=== PATIENT | female | born 1990 | race Caucasian/White ===

== ENCOUNTER 2023-03-14 23:41 | Emergency (ER) | payer MEDICAID, SELFPAY ==
[2023-03-14 23:44] VITALS: BP 142/95; PULSE 91; RESP 14; TEMP 37.1; O2SAT 98; BMI 36.5
== END 2023-03-15 06:09 | disposition left against medical advice (07) ==
PROVIDERS: Emergency Provider Emergency Medicine
DX: R06.02 Shortness of breath (principal); R04.0 Epistaxis
CPT/HCPCS: 99281

== ENCOUNTER 2023-11-08 21:47 | Emergency (ER) | payer MEDICAID, SELFPAY ==
[2023-11-08 21:56] VITALS: BP 141/63; PULSE 106; RESP 18; TEMP 37.2; O2SAT 97; BMI 38.7
--- NOTE | 2023-11-08 22:55 | MHC.EDTECH ---
Patient rsv/covid swab collected and sent to lab .
[2023-11-08 23:43] LABS: Influenza A PCR NEGATIVE (Negative); Influenza B PCR NEGATIVE (Negative); Resp Syncy Virus RNA Qual PCR NEGATIVE (Negative); SARS COV2 PCR INHOUSE NEGATIVE (Negative)
--- NOTE | 2023-11-09 01:01 | ED.GENADULT ---
HPI - General Adult General Chief complaint: General Medical Stated complaint: Flu like syptoms Time Seen by Provider: 11/09/23 01:02 Source: patient and hearing screener Mode of arrival: ambulatory Limitations: language barrier History of Present Illness HPI narrative: Patient is a 33 year old assigned female at with no reported medical history presenting to the emergency department today with a rash and feeling generally unwell. Patient states that 2 days ago she touched the powder that goes on top of donuts that possibly contained tree nuts, which she is allergic to. Patient today she has begun to feel unwell with a fever and body aches. Patient denies any dizziness, lightheadedness, abdominal pain, nausea, vomiting, chills, blurry vision, double vision, loss of vision, chest pain, difficulty breathing, shortness of breath, back pain, night sweats, pain with urination, increased urinary frequency, increased urinary urgency, blood in her urine or stool, syncope or a near syncopal episode, recent trauma or falls, bowel incontinence, bladder incontinence, bowel retention, bladder retention, or any other complaints at this time. Onset (ago): day(s) Severity: mild Relieving factors: none Exacerbating factors: none Associated symptoms: fever/chills Treatments prior to arrival: none Related Data Previous Rx's Medication Instructions Recorded prednisone 20 mg tablet 20 mg PO DAILY 7 days #7 tabs 11/09/23 Allergies Allergy/AdvReac Type Severity Reaction Status Date / Time Penicillins [PENICILLINS] Allergy Intermediate UNKNOWN Unverified 07/25/20 18:38 tree nut Allergy Rash Verified 11/08/23 22:04 PCN Allergy Unknown hives Uncoded 04/12/14 00:00 Review of Systems Constitutional: Constitutional: Reports no additional constitutional complaints, Denies chills, Reports fever(s) and Denies night sweats Eyes: Eyes: Reports no additional eye complaints, Denies blurry vision, Denies change in vision, Denies diplopia, Denies eye discharge, Denies loss of vision and Denies eye pain ENT: Denies dizziness Cardiovascular: Cardiovascular: Reports no additional cardiovascular complaints, Denies chest pain, Denies lightheadedness, Denies Loss of Consciousness and Denies dyspnea Respiratory: Respiratory: Reports no additional respiratory complaints and Denies dyspnea Gastrointestinal: Gastrointestinal: Reports no additional gastrointestinal complaints, Denies abdominal pain, Denies melena, Denies hematochezia, Denies change in bowel habits and Denies change in stool character Genitourinary: Genitourinary: Denies hematuria, Denies urinary frequency, Denies dysuria, Denies urinary incontinence, Denies urinary hesitancy and Denies urinary urgency Musculoskeletal: Musculoskeletal: Reports no additional musculoskeletal complaints, Denies numbness and Denies tingling Integumentary/Breasts: Comments: rash to bilateral hands Neurologic: Denies dizziness, Denies loss of vision, Denies numbness and Denies tingling Psychiatric: Psychiatric: Reports no additional psychiatric complaints Endocrine: Endocrine: Reports no additional endocrine complaints Hematologic/Lymphatic: Hematologic/Lymphatic: Reports no additional hematologic/lymphatic complaints Allergic/Immunologic: Allergic/Immunologic: Reports no additional allergic/immunologic complaints PMFSH Past Medical History Attestation statement: The following information was validated with the patient. Source: old records reviewed and nursing notes reviewed Onset Date is defined in the Problem List Problems that require an onset date and time if occurred within 24 hrs of arrival to the ED Aortic Dissection and Rupture; Neurologic impairment; Cardiopulmonary Arrest; Endotracheal Intubation; Insertion or Replacement of Mechanical Circulatory Assist Device Social History Social History Advance Directives: No Advance Directives Information Provided: No Physical Exam ED Vital Signs: Vital Signs - 24 hr 11/08/23 21:56 Temperature 99 F Pulse Rate 106 H Respiratory Rate 18 Blood Pressure 141/63 H Pulse Oximetry 97 Oxygen Delivery Method Room Air BMI result Body Mass Index 38.7 Const General: cooperative, no acute distress, alert and awake Nutritional Appearance: well nourished Orientation/consciousness: patient oriented x3 Limitations: no limitations HENMT Head: Yes normal to inspection and Yes atraumatic Ears: hearing grossly normal bilaterally and external ears normal General nose exam: Normal external nose present, no nasal discharge noted and no epistaxis Face and sinus: Yes normal facial exam, No abrasion and No laceration Mouth: Normal oral and palatal mucosa present, no drooling and no muffled voice Eyes General: appearance normal, both eyes and all related structures Periorbital: periorbital findings normal Eyelids: Yes eyelids normal Conjunctivae: conjunctivae normal Pupils: Equal, round and reactive pupils present EOM: EOMs intact bilaterally Neck Neck: Yes normal visual inspection, Yes full ROM and Yes no lymphadenopathy Chest Chest palpation & inspection: normal inspection of the chest Resp Effort & Inspection: normal respiratory effort and able to speak in complete sentences GI Inspection: Yes normal to inspection Neuro General: patient oriented x3 and moves all extremities Cranial nerves: Yes Equal, round and reactive pupils present Cognition (Neuro): normal cognition Motor exam (neuro): 5/5 motor strength present throughout Sensory Exam: Normal double simultaneous stimulation for sensation Coordination: [id number] test normal Extrem Other: dermatitis type rash to the bilateral dorsal hands General: Yes full ROM and Yes capillary refill normal Psych Appearance: grossly normal Mental Status: mental status grossly normal Affect: normal affect Attitude: cooperative Thought process: Normal thought process present Thought content: Normal thought content present Insight: Good insight present (Psych) Medications Administered Discontinued Medications Generic Name Dose Route Start Last Admin Trade Name Freq PRN Reason Stop Dose Admin Dexamethasone Sodium Phosphate 10 mg 11/09/23 01:18 11/09/23 01:32 Dexamethasone Sod Phosphate 10 Mg/Ml Vial PO 11/09/23 01:19 10 mg ONCE ONE Administration Medical Decision Making Medical Decision Making MDM Narrative: Patient is a 33 year old assigned female at with no reported medical history presenting to the emergency department today with a rash and feeling generally unwell. Patient's physical exam was as noted in the physical exam portion of this note. Patient's COVID-19, influenza, and RSV tests were negative. Patient's rash is most consistent with dermatitis. I believe the patient has a dermatitis type rash as well as a viral illness. I explained my physical exam findings as well as all test results to the patient. I answered all questions asked by the patient. I stressed the importance of the patient taking her medication as prescribed. I stressed the importance of the patient following up with her primary care provider and a strapper operator. I stressed the importance of the patient returning to the emergency department immediately if her symptoms were to worsen or if she were to develop any dizziness, shortness of breath, difficulty breathing, chest pain, blurry vision, loss of vision, nausea, vomiting, abdominal pain, fever, chills, back pain, or any other complaints. Patient verbalized agreement and understanding with this treatment plan and discharge. Differential Diagnosis Differential Diagnoses: The differential diagnosis associated with the presentation includes Dermatitis Allergic reaction Viral illness Influenza COVID-19 RSV Admission/Observation Consideration of admission/observation: Escalation of care including admission/observation considered Patient would have been admitted to the hospital had her work up had any findings where hospital admission was appropriate and her clinical presentation warranted hospital admission. Lab Data MDM Lab Attestation statement: I reviewed the patient's lab results. My interpretation of these studies and their corresponding values is that they are grossly normal. Labs: Lab Results 11/08/23 Range/Units 22:55 Influenza Type A (PCR) NEGATIVE (Negative) Influenza Type B (PCR) NEGATIVE (Negative) RSV RNA Qual (PCR) NEGATIVE (Negative) SARS-CoV-2 RNA (RT-PCR) NEGATIVE (Negative) Prescription Management I considered prescription management with: Other (patient prescribed prednisone.) Discharge Plan Discharge Clinical Impression: Rash Patient Disposition: Home, Self-Care Instructions: Acute Rash (ED) Additional Instructions: Follow up with your primary care provider and a strapper operator. Return to the emergency department immediately if your symptoms worsen or if you develop any dizziness, shortness of breath, difficulty breathing, chest pain, blurry vision, loss of vision, nausea, vomiting, abdominal pain, fever, chills, back pain, or any other complaints. Rahat un seguimiento con joiner proveedor de atenci?n primaria y un dermat?logo. Regrese al departamento de emergencias inmediatamente si federica s?ntomas empeoran o si presenta mareos, dificultad para respirar, dificultad para respirar, dolor en el pecho, visi?n borrosa, p?rdida de la visi?n, n?useas, v?mitos, dolor abdominal, fiebre, escalofr?os, dolor de espalda o cualquier otras quejas. Prescriptions: New prednisone 20 mg tablet 20 mg PO DAILY 7 Days Qty: 7 0RF Referrals: [facility] [Provider Group] (Call to establish and follow up with a strapper operator. Llame para establecer y joey seguimiento con un dermat?logo.) [facility] [Provider Group] (Call to establish and follow up with a primary care provider. If you already have a primary care provider. Llame para establecer y realizar un seguimiento con un proveedor de atenci?n primaria. Si ya tiene un proveedor de atenci?n primaria.) [facility] [Provider Group] (Call to establish and follow up with a primary care provider. If you already have a primary care provider. Llame para establecer y realizar un seguimiento con un proveedor de atenci?n primaria. Si ya tiene un proveedor de atenci?n primaria.) [facility] [Provider Group] (Call to establish and follow up with a primary care provider. If you already have a primary care provider. Llame para establecer y realizar un seguimiento con un proveedor de atenci?n primaria. Si ya tiene un proveedor de atenci?n primaria.) Print Language: [place]
[2023-11-09] MEDS: dexAMETHasone sod phosphate 10 MG/ML VIAL PO (01:32)
== END 2023-11-09 02:07 | disposition home or self-care (01) ==
PROVIDERS: Emergency Provider Internal Medicine
DX: R21 Rash and other nonspecific skin eruption (principal); Z20.822 Contact with and (suspected) exposure to COVID-19; Z20.828 Contact with and (suspected) exposure to other viral communicable diseases; M79.10 Myalgia, unspecified site
CPT/HCPCS: 0241U; 99283; 99284; J1100